=== PATIENT | male | born 1975 | race African-American/Black ===

== ENCOUNTER 2022-12-01 07:45 | Emergency (ER) | payer OTHER, SELFPAY ==
[2022-12-01] MEDS ORDERED: Mag-Al Plus 1200 MG/1200 MG/120 MG/30 ML UDCUP ONE (08:19)
[2022-12-01 08:33] LABS: #Eosinphils 0.1 10x3/uL (0.0-0.5); #Monocytes 0.4 10x3/uL (0.0-1.1); #Neutrophils 4.1 10x3/uL (1.5-8.4); %Basophils 0.4 % (0.0-2.0); %Eosinophils 1.1 % (0.0-6.0); %Monocytes 7.1 % (0.0-10.0); %Neutrophils 72.2 % (40.0-75.0); Hematocrit 40.4 % (38.8-50.0); Hemoglobin 13.7 g/dL (13.5-17.5); Mean Corpuscular HGB CONC 33.9 g/dL (32.0-36.0); Mean Corpuscular Hemoglobin 28.4 pg (27.0-33.0); Mean Corpuscular Volume 83.8 fl (81.2-95.1); Mean Platelet Volume 11.2 fl (7.4-10.4); Platelet Count 225 10x3/uL (150-450); RBC Distribution Width 13.6 % (11.5-14.5); Red Blood Cell (RBC) Count 4.82 10x6/uL (4.32-5.72); White Blood Cell (WBC) Count 5.7 10x3/uL (3.5-10.5)
[2022-12-01 08:39] LABS: ALT (SGPT) 66 U/L (8-55); AST (SGOT) 40 U/L (5-34); Albumin 4.3 g/dL (3.5-5.0); Alkaline Phosphatase 123 U/L (40-110); Anion Gap 17 mmol/L (10-20); BUN (Urea Nitrogen) 9 mg/dL (8.9-20.6); Bilirubin, Total 1.5 mg/dL (0.2-1.2); Calc. Creatinine Clearance 0 mL/min (70-130); Carbon Dioxide 23 mmol/L (22-29); Chloride 102 mmol/L (98-107); Estimated GFR 105; Globulin 3.3 g/dL (2.4-3.5); Glucose 112 mg/dL (70-105); Lipase 709 U/L (8-78); Potassium 3.7 mmol/L (3.5-5.1); Protein, Total 7.6 g/dL (6.0-8.3); Sodium 138 mmol/L (136-145)
[2022-12-01] MEDS ORDERED: Ketorolac Tromethamine 30 MG/ML VIAL ONE (09:08)
[2022-12-01 09:44] LABS: Bilirubin Neg (Negative); Blood, Urine Negative (Negative); Clarity Clear (Clear); Glucose, Urine (Dipstick) Normal (Negative); Ketone, Urine 5 mg/dL (Negative); Leukocyte Negative (Negative); Nitrite Negative (Negative); Protein, Urine (Dipstick) 15 mg/dl (Neg-Trace); Specific Gravity, Urine 1.025 (1.005-1.030)
[2022-12-01 09:51] LABS: Bacteria/HPF Rare-Few HPF (None Seen); CAUTI Indications for Culture Pelvic or flank pain; RBC/HPF 0-3 HPF (0-3); WBC/HPF 0-3 HPF (0-3)
[2022-12-01 09:52] LABS: Urine Culture Reflex No No
[2022-12-01] MEDS ORDERED: Iopamidol 300 61% 100 ML VIAL FS ONE (10:00)
== END 2022-12-01 11:20 | disposition home or self-care (01) ==
LOC: CSHERS 07:45
DX: K85.90 Acute pancreatitis without necrosis or infection, unspecified (principal); I10 Essential (primary) hypertension
CPT/HCPCS: 36415; 74177; 80053; 81001; 83690; 85025; 96374; J1885; Q9967

== ENCOUNTER 2024-01-08 23:04 | Emergency (ER) | payer BC, OTHER ==
[~2024-01-08 23:04] MED LIST: Iopamidol 370 76% 100 ML VIAL ONE
[2024-01-08] MEDS ORDERED: Morphine 10 MG/ML VIAL ONE (23:38)
[2024-01-08] MEDS ORDERED: Ondansetron PF 4 MG/2 ML Vial ONE (23:39)
[2024-01-08 23:54] LABS: #Basophils 0.03 10x3/uL (0.0-0.2); #Eosinphils 0.06 10x3/uL (0.0-0.5); #Monocytes 0.36 10x3/uL (0.0-1.1); #Neutrophils 2.68 10x3/uL (1.5-8.4); %Basophils 0.6 % (0.0-2.0); %Eosinophils 1.3 % (0.0-6.0); %Lymphocytes 32.3 % (18.0-47.0); %Monocytes 7.8 % (0.0-10.0); %Neutrophils 57.8 % (40.0-75.0); Hematocrit 39.1 % (38.8-50.0); Hemoglobin 13.2 g/dL (13.5-17.5); Mean Corpuscular HGB CONC 33.8 g/dL (32.0-36.0); Mean Corpuscular Hemoglobin 28.6 pg (27.0-33.0); Mean Corpuscular Volume 84.6 fL (81.2-95.1); Mean Platelet Volume 11.4 fL (7.4-10.4); Platelet Count 220 10x3/uL (150-450); RBC Distribution Width 14.2 % (11.5-14.5); Red Blood Cell (RBC) Count 4.62 10x6/uL (4.32-5.72); White Blood Cell (WBC) Count 4.6 10x3/uL (3.5-10.5)
[2024-01-08 23:58] LABS: Acetaminophen Less than 10 mcg/mL (Less than 10); Alcohol Less than 10.0 mg/dL (Less than 10); Lipase 173 U/L (8-78); Salicylate Less than 8.0 mg/dL (Less than 8.0)
[2024-01-08 23:59] LABS: ALT (SGPT) 68 U/L (8-55); AST (SGOT) 34 U/L (5-34); Albumin 4.1 g/dL (3.5-5.0); Alkaline Phosphatase 71 U/L (40-110); Anion Gap 14 mmol/L (10-20); BUN (Urea Nitrogen) 11 mg/dL (8.9-20.6); Bilirubin, Total 0.6 mg/dL (0.2-1.2); Calc. Creatinine Clearance 0 mL/min (70-130); Calcium 9.2 mg/dL (7.8-10.44); Carbon Dioxide 23 mmol/L (22-29); Chloride 105 mmol/L (98-107); Estimated GFR 93; Globulin 3.1 g/dL (2.4-3.5); Glucose 117 mg/dL (70-105); Protein, Total 7.2 g/dL (6.0-8.3); Sodium 138 mmol/L (136-145)
[2024-01-09] MEDS ORDERED: Morphine 4 MG/ML VIAL ONE (01:46)
== END 2024-01-09 02:58 | disposition short-term general hospital (02) ==
LOC: CSHERS 23:04
DX: K85.90 Acute pancreatitis without necrosis or infection, unspecified (principal); I10 Essential (primary) hypertension
CPT/HCPCS: 36415; 71045; 74177; 80053; 80307; 83690; 84484; 85025; 93005; 96374; 96375; 96376; J2270; J2272; J2405

== ENCOUNTER 2024-01-22 10:53 | Emergency (ER) | payer OTHER ==
[2024-01-22] MEDS ORDERED: Ketorolac Tromethamine 30 MG (1 mL) VIAL ONE (11:43)
[2024-01-22 11:47] LABS: ALT (SGPT) 55 U/L (8-55); AST (SGOT) 32 U/L (5-34); Albumin 4.2 g/dL (3.5-5.0); Alkaline Phosphatase 73 U/L (40-110); Anion Gap 15 mmol/L (10-20); BUN (Urea Nitrogen) 14 mg/dL (8.4-25.7); Bilirubin, Total 0.6 mg/dL (0.2-1.2); Calc. Creatinine Clearance 0 mL/min (70-130); Calcium 9.2 mg/dL (7.8-10.44); Carbon Dioxide 23 mmol/L (22-29); Chloride 105 mmol/L (98-107); Estimated GFR 88; Globulin 3.5 g/dL (2.4-3.5); Glucose 100 mg/dL (70-105); Lipase 40 U/L (8-78); Potassium 4.1 mmol/L (3.5-5.1); Protein, Total 7.7 g/dL (6.0-8.3); Sodium 139 mmol/L (136-145)
[2024-01-22] MEDS ORDERED: Morphine 4 MG/ML VIAL ONE (11:48)
[2024-01-22 12:03] LABS: #Basophils 0.03 10x3/uL (0.0-0.2); #Eosinophils 0.09 10x3/uL (0.0-0.5); #Monocytes 0.42 10x3/uL (0.0-1.1); %Basophils 0.4 % (0.0-2.0); %Eosinophils 1.2 % (0.0-6.0); %Lymphocytes 18.8 % (18.0-47.0); %Monocytes 5.4 % (0.0-10.0); %Neutrophils 73.9 % (40.0-75.0); Hematocrit 42.9 % (38.8-50.0); Mean Corpuscular HGB CONC 32.6 g/dL (32.0-36.0); Mean Corpuscular Hemoglobin 27.7 pg (27.0-33.0); Mean Platelet Volume 11.2 fL (7.4-10.4); Platelet Count 286 10x3/uL (150-450); RBC Distribution Width 13.9 % (11.5-14.5); Red Blood Cell (RBC) Count 5.05 10x6/uL (4.32-5.72); White Blood Cell (WBC) Count 7.7 10x3/uL (3.5-10.5)
[2024-01-23] MEDS ORDERED: Morphine 4 MG/ML VIAL ONE (06:07)
[2024-01-23] MEDS ORDERED: Ondansetron PF 4 MG/2 ML Vial ONE (06:07)
== END 2024-01-22 14:02 | disposition home or self-care (01) ==
LOC: CSHERS 10:53
DX: K85.90 Acute pancreatitis without necrosis or infection, unspecified (principal); K86.1 Other chronic pancreatitis; I10 Essential (primary) hypertension
CPT/HCPCS: 80053; 83690; 85025; 96374; 96375; J1885; J2272

== ENCOUNTER 2024-02-17 19:10 | Emergency (ER) | payer OTHER ==
[2024-02-17] MEDS ORDERED: Ondansetron PF 4 MG/2 ML Vial ONE (19:33)
[2024-02-17 20:28] LABS: #Basophils 0.02 10x3/uL (0.0-0.2); #Eosinophils 0.06 10x3/uL (0.0-0.5); #Monocytes 0.42 10x3/uL (0.0-1.1); #Neutrophils 3.05 10x3/uL (1.5-8.4); %Basophils 0.4 % (0.0-2.0); %Eosinophils 1.1 % (0.0-6.0); %Lymphocytes 34.6 % (18.0-47.0); %Monocytes 7.7 % (0.0-10.0); ALT (SGPT) 52 U/L (8-55); AST (SGOT) 25 U/L (5-34); Albumin 3.9 g/dL (3.5-5.0); Alcohol Less than 10.0 mg/dL (Less than 10); Alkaline Phosphatase 64 U/L (40-110); Anion Gap 15 mmol/L (10-20); BUN (Urea Nitrogen) 15 mg/dL (8.4-25.7); Bilirubin, Total 1.1 mg/dL (0.2-1.2); Calc. Creatinine Clearance 0 mL/min (70-130); Calcium 9.1 mg/dL (7.8-10.44); Carbon Dioxide 19 mmol/L (22-29); Chloride 108 mmol/L (98-107); Estimated GFR 80; Globulin 3.2 g/dL (2.4-3.5); Glucose 99 mg/dL (70-105); Hematocrit 38.8 % (38.8-50.0); Hemoglobin 12.5 g/dL (13.5-17.5); Lipase 58 U/L (8-78); Magnesium 1.9 mg/dL (1.6-2.6); Mean Corpuscular HGB CONC 32.2 g/dL (32.0-36.0); Mean Corpuscular Hemoglobin 27.2 pg (27.0-33.0); Mean Corpuscular Volume 84.5 fL (81.2-95.1); Mean Platelet Volume 11.4 fL (7.4-10.4); Platelet Count 242 10x3/uL (150-450); Potassium 3.8 mmol/L (3.5-5.1); Protein, Total 7.1 g/dL (6.0-8.3); RBC Distribution Width 13.9 % (11.5-14.5); Red Blood Cell (RBC) Count 4.59 10x6/uL (4.32-5.72); Sodium 138 mmol/L (136-145); White Blood Cell (WBC) Count 5.4 10x3/uL (3.5-10.5)
[2024-02-17] MEDS ORDERED: Morphine 4 MG/ML VIAL ONE (21:20)
== END 2024-02-17 21:38 | disposition home or self-care (01) ==
LOC: CSHERS 19:10
DX: K29.00 Acute gastritis without bleeding (principal); K86.1 Other chronic pancreatitis; I10 Essential (primary) hypertension; Z79.51 Long term (current) use of inhaled steroids; Z79.899 Other long term (current) drug therapy
CPT/HCPCS: 80053; 80307; 83690; 83735; 85025; 96374; 96375; J2272; J2405

== ENCOUNTER 2024-02-18 07:30 | Emergency (ER) | payer OTHER ==
[2024-02-18] MEDS ORDERED: Morphine 4 MG/ML VIAL ONE (07:50)
[2024-02-18] MEDS ORDERED: Ondansetron PF 4 MG/2 ML Vial ONE (07:50)
[2024-02-18] MEDS ORDERED: Famotidine/PF 20 mg/2ml Vial ONE (07:51)
[2024-02-18 08:54] LABS: #Basophils 0.03 10x3/uL (0.0-0.2); #Eosinophils 0.06 10x3/uL (0.0-0.5); #Monocytes 0.35 10x3/uL (0.0-1.1); %Basophils 0.8 % (0.0-2.0); %Eosinophils 1.7 % (0.0-6.0); %Lymphocytes 29.4 % (18.0-47.0); %Monocytes 9.7 % (0.0-10.0); %Neutrophils 58.1 % (40.0-75.0); Hematocrit 36.7 % (38.8-50.0); Hemoglobin 12.1 g/dL (13.5-17.5); Mean Corpuscular Hemoglobin 27.9 pg (27.0-33.0); Mean Corpuscular Volume 84.8 fL (81.2-95.1); Mean Platelet Volume 10.8 fL (7.4-10.4); Platelet Count 203 10x3/uL (150-450); RBC Distribution Width 13.5 % (11.5-14.5); Red Blood Cell (RBC) Count 4.33 10x6/uL (4.32-5.72); White Blood Cell (WBC) Count 3.6 10x3/uL (3.5-10.5)
[2024-02-18 09:10] LABS: ALT (SGPT) 53 U/L (8-55); AST (SGOT) 28 U/L (5-34); Albumin 3.6 g/dL (3.5-5.0); Alkaline Phosphatase 61 U/L (40-110); Anion Gap 14 mmol/L (10-20); BUN (Urea Nitrogen) 10 mg/dL (8.4-25.7); Bilirubin, Total 0.7 mg/dL (0.2-1.2); Calc. Creatinine Clearance 0 mL/min (70-130); Calcium 8.6 mg/dL (7.8-10.44); Carbon Dioxide 20 mmol/L (22-29); Chloride 103 mmol/L (98-107); Estimated GFR 104; Globulin 3.1 g/dL (2.4-3.5); Glucose 112 mg/dL (70-105); Lipase 49 U/L (8-78); Potassium 3.8 mmol/L (3.5-5.1); Protein, Total 6.7 g/dL (6.0-8.3); Sodium 133 mmol/L (136-145)
[2024-02-18] MEDS ORDERED: Iopamidol 300 61% 100 ML VIAL FS ONE (12:10)
== END 2024-02-18 09:22 | disposition home or self-care (01) ==
LOC: CSHERS 07:30
DX: R10.9 Unspecified abdominal pain (principal); G89.29 Other chronic pain; I10 Essential (primary) hypertension
CPT/HCPCS: 36415; 74177; 80053; 83690; 85025; 96374; 96375; J2272; J2405; J3490; Q9967

== ENCOUNTER 2024-03-07 09:34 | Emergency (ER) | payer OTHER ==
[2024-03-07] MEDS ORDERED: Morphine 4 MG/ML VIAL ONE (10:09)
[2024-03-07] MEDS ORDERED: Ondansetron PF 4 MG/2 ML Vial ONE (10:09)
[2024-03-07 10:11] LABS: #Basophils 0.02 10x3/uL (0.0-0.2); #Eosinophils 0.06 10x3/uL (0.0-0.5); %Basophils 0.5 % (0.0-2.0); %Eosinophils 1.5 % (0.0-6.0); %Lymphocytes 36.5 % (18.0-47.0); %Monocytes 7.4 % (0.0-10.0); %Neutrophils 53.9 % (40.0-75.0); Hematocrit 39.4 % (38.8-50.0); Hemoglobin 13.1 g/dL (13.5-17.5); Mean Corpuscular HGB CONC 33.2 g/dL (32.0-36.0); Mean Corpuscular Volume 84.2 fL (81.2-95.1); Mean Platelet Volume 10.7 fL (7.4-10.4); Platelet Count 228 10x3/uL (150-450); RBC Distribution Width 13.9 % (11.5-14.5); Red Blood Cell (RBC) Count 4.68 10x6/uL (4.32-5.72); White Blood Cell (WBC) Count 4.1 10x3/uL (3.5-10.5)
[2024-03-07 10:36] LABS: ALT (SGPT) 45 U/L (8-55); AST (SGOT) 28 U/L (5-34); Albumin 3.9 g/dL (3.5-5.0); Alkaline Phosphatase 71 U/L (40-110); Anion Gap 14 mmol/L (10-20); BUN (Urea Nitrogen) 11 mg/dL (8.4-25.7); Bilirubin, Total 0.6 mg/dL (0.2-1.2); Calc. Creatinine Clearance 0 mL/min (70-130); Calcium 9.3 mg/dL (7.8-10.44); Carbon Dioxide 23 mmol/L (22-29); Chloride 103 mmol/L (98-107); Estimated GFR 99; Globulin 3.4 g/dL (2.4-3.5); Glucose 121 mg/dL (70-105); Lipase 81 U/L (8-78); Potassium 3.5 mmol/L (3.5-5.1); Protein, Total 7.3 g/dL (6.0-8.3); Sodium 136 mmol/L (136-145)
[2024-03-07 10:54] LABS: Bilirubin Neg (Negative); Blood, Urine Negative (Negative); Clarity Clear (Clear); Glucose, Urine (Dipstick) Normal (Negative); Ketone, Urine Negative (Negative); Leukocyte Negative (Negative); Nitrite Negative (Negative); Protein, Urine (Dipstick) 15 mg/dl (Neg-Trace)
[2024-03-07 11:04] LABS: Bacteria/HPF None Seen HPF (None Seen); CAUTI Indications for Culture Pelvic or flank pain; RBC/HPF 0-3 HPF (0-3); Squamous Epithelial 0-3 HPF (0-3); WBC/HPF None Seen HPF (0-3)
[2024-03-07 11:06] LABS: Urine Culture Reflex No No
[2024-03-07] MEDS ORDERED: Iopamidol 300 61% 100 ML VIAL FS ONE (13:21)
== END 2024-03-07 11:43 | disposition home or self-care (01) ==
LOC: CSHERS 09:34
DX: K86.1 Other chronic pancreatitis (principal); I10 Essential (primary) hypertension
CPT/HCPCS: 36415; 74177; 80053; 81001; 83690; 85025; J2272; J2405; Q9967

== ENCOUNTER 2024-03-09 05:57 | Inpatient (IN) | payer OTHER ==
[2024-03-09] MEDS ORDERED: Morphine 4 MG/ML VIAL ONE (06:09)
[2024-03-09] MEDS ORDERED: Ondansetron PF 4 MG/2 ML Vial ONE (06:10)
[2024-03-09] MEDS ORDERED: Famotidine/PF 20 mg/2ml Vial ONE (06:26)
[2024-03-09 06:52] LABS: ALT (SGPT) 42 U/L (8-55); BUN (Urea Nitrogen) 12 mg/dL (8.4-25.7); Calc. Creatinine Clearance 0 mL/min (70-130); Potassium 3.7 mmol/L (3.5-5.1)
[2024-03-09 07:01] LABS: #Basophils 0.03 10x3/uL (0.0-0.2); #Eosinophils 0.06 10x3/uL (0.0-0.5); #Monocytes 0.39 10x3/uL (0.0-1.1); #Neutrophils 2.78 10x3/uL (1.5-8.4); %Basophils 0.6 % (0.0-2.0); %Eosinophils 1.2 % (0.0-6.0); %Lymphocytes 32.5 % (18.0-47.0); %Monocytes 8.1 % (0.0-10.0); %Neutrophils 57.6 % (40.0-75.0); Hematocrit 38.1 % (38.8-50.0); Hemoglobin 13.1 g/dL (13.5-17.5); Mean Corpuscular HGB CONC 34.4 g/dL (32.0-36.0); Mean Corpuscular Hemoglobin 28.5 pg (27.0-33.0); Mean Corpuscular Volume 82.8 fL (81.2-95.1); Mean Platelet Volume 11.4 fL (7.4-10.4); Platelet Count 241 10x3/uL (150-450); RBC Distribution Width 14.1 % (11.5-14.5); White Blood Cell (WBC) Count 4.8 10x3/uL (3.5-10.5)
[2024-03-09 07:49] LABS: AST (SGOT) 28 U/L (5-34); Albumin 3.7 g/dL (3.5-5.0); Alkaline Phosphatase 67 U/L (40-110); Anion Gap 16 mmol/L (10-20); Bilirubin, Total 0.7 mg/dL (0.2-1.2); Calcium 8.8 mg/dL (7.8-10.44); Carbon Dioxide 19 mmol/L (22-29); Chloride 106 mmol/L (98-107); Estimated GFR 104; Globulin 2.9 g/dL (2.4-3.5); Glucose 122 mg/dL (70-105); Lipase 498 U/L (8-78); Protein, Total 6.6 g/dL (6.0-8.3); Sodium 137 mmol/L (136-145)
[2024-03-09] MEDS ORDERED: fentaNYL 50 mcg/mL 1 mL Vial ONE (08:16)
[2024-03-09 08:46] LABS: Troponin I Less than 0.010 ng/mL (< 0.028)
[2024-03-09] MEDS ORDERED: Ondansetron PF 4 MG/2 ML Vial IVP PRN (09:27)
[2024-03-09] MEDS ORDERED: Promethazine HCl 25 MG/ML VIAL IM PRN ×2 (09:27)
[2024-03-09] MEDS ORDERED: Acetaminophen 325 MG TAB PO PRN (09:27)
[2024-03-09] MEDS ORDERED: Ketorolac Tromethamine 30 MG (1 mL) VIAL ONE (10:03)
[2024-03-09 11:12] VITALS: BMI 32.1
[2024-03-09] MEDS: Morphine 4 MG/ML VIAL SLOW IVP PRN (12:15)
[2024-03-09] MEDS: Sodium Chloride 0.9% 1,000 ML IV SCH (12:20)
[2024-03-09] MEDS: Ketorolac Tromethamine 30 MG (1 mL) VIAL IVP SCH (13:14)
[2024-03-09] MEDS: Famotidine/PF 20 mg/2ml Vial SLOW IVP SCH (20:02)
[2024-03-10] MEDS: Enoxaparin 40 MG (0.4 mL) SYRINGE SC SCH (08:41)
[2024-03-10] MEDS ORDERED: cloNIDine 0.2 MG TAB PO PRN (08:58)
[2024-03-10] MEDS ORDERED: Lidocaine 4% Patch TD PRN (08:58)
[2024-03-10] MEDS ORDERED: oxyCODONE 5 MG TAB PO PRN (09:00)
[2024-03-10] MEDS ORDERED: Fluticasone Propionate Nasal Spray 16 gm Bottle NASAL PRN (09:13)
[2024-03-10] MEDS: Baclofen 10 MG TAB PO SCH (10:05)
[2024-03-10] MEDS: Pantoprazole DR 40 MG TAB PO SCH (10:05)
[2024-03-10] MEDS: Amlodipine 10 MG TAB PO SCH (10:05)
[2024-03-10] MEDS: Acetaminophen 500 MG TAB PO SCH (10:05)
[2024-03-10] MEDS: hydrALAZINE 25 MG TAB PO SCH (10:05)
[2024-03-10] MEDS ORDERED: LIPASE PO SCH (12:00)
[2024-03-10] MEDS ORDERED: AMYLASE PO SCH (12:00)
[2024-03-10] MEDS ORDERED: [UNRECOGNIZED DRUG - OTHER] PO SCH (12:00)
[2024-03-10] MEDS ORDERED: PROTEASE PO SCH (12:00)
[2024-03-10 12:53] VITALS: BP 128/82; TEMP 98.5
[2024-03-10] MEDS: Pancrelipase DR 12,000 1 CAP PO SCH (12:54)
[2024-03-10] MEDS ORDERED: Pregabalin 50 MG CAP PO SCH (21:00)
== END 2024-03-10 13:52 | disposition home or self-care (01) | DRG 440 ==
LOC: CSHERS 05:57 → CSHTELE 10:45 → OBSVTOIN 03-10 09:39
PROVIDERS: ADMIT Hospitalist; ATTEND Hospitalist
DX: K85.90 Acute pancreatitis without necrosis or infection, unspecified (principal); I10 Essential (primary) hypertension; K86.1 Other chronic pancreatitis; G47.33 Obstructive sleep apnea (adult) (pediatric); F43.10 Post-traumatic stress disorder, unspecified; Z85.46 Personal history of malignant neoplasm of prostate; Z79.02 Long term (current) use of antithrombotics/antiplatelets; Z79.51 Long term (current) use of inhaled steroids; Z79.899 Other long term (current) drug therapy
CPT/HCPCS: 36415; 74177; 80053; 81001; 83690; 84484; 85025; 86140; 93005; 96372; 96374; 96375; 96376; G0378; J1650; J1885; J2272; J2405; J3010; J3490; J7030; Q9967

== ENCOUNTER 2024-03-13 01:58 | Emergency (ER) | payer OTHER ==
[2024-03-13] MEDS ORDERED: HYDROmorphone 0.5 MG/0.5 ML SYRINGE ONE (03:23)
[2024-03-13] MEDS ORDERED: Promethazine HCl 25 MG/ML VIAL IM SCH (21:00)
[2024-03-14 02:58] LABS: #Basophils 0.02 10x3/uL (0.0-0.2); #Eosinophils 0.07 10x3/uL (0.0-0.5); #Monocytes 0.42 10x3/uL (0.0-1.1); #Neutrophils 2.77 10x3/uL (1.5-8.4); %Basophils 0.4 % (0.0-2.0); %Eosinophils 1.4 % (0.0-6.0); %Lymphocytes 36.4 % (18.0-47.0); %Monocytes 8.1 % (0.0-10.0); %Neutrophils 53.5 % (40.0-75.0); Hematocrit 35.5 % (38.8-50.0); Hemoglobin 12.3 g/dL (13.5-17.5); Mean Corpuscular HGB CONC 34.6 g/dL (32.0-36.0); Mean Corpuscular Hemoglobin 29.1 pg (27.0-33.0); Mean Corpuscular Volume 83.9 fL (81.2-95.1); Mean Platelet Volume 11.2 fL (7.4-10.4); Platelet Count 234 10x3/uL (150-450); RBC Distribution Width 14.3 % (11.5-14.5); Red Blood Cell (RBC) Count 4.23 10x6/uL (4.32-5.72); White Blood Cell (WBC) Count 5.2 10x3/uL (3.5-10.5)
[2024-03-14 02:59] LABS: ALT (SGPT) 57 U/L (8-55); AST (SGOT) 41 U/L (5-34); Albumin 3.8 g/dL (3.5-5.0); Alkaline Phosphatase 60 U/L (40-110); Anion Gap 15 mmol/L (10-20); BUN (Urea Nitrogen) 17 mg/dL (8.4-25.7); Bilirubin, Total 0.6 mg/dL (0.2-1.2); Calc. Creatinine Clearance 0 mL/min (70-130); Calcium 9.3 mg/dL (7.8-10.44); Carbon Dioxide 24 mmol/L (22-29); Chloride 103 mmol/L (98-107); Estimated GFR 78; Globulin 3.1 g/dL (2.4-3.5); Glucose 117 mg/dL (70-105); Lipase 33 U/L (8-78); Potassium 3.5 mmol/L (3.5-5.1); Protein, Total 6.9 g/dL (6.0-8.3); Sodium 138 mmol/L (136-145)
== END 2024-03-13 03:59 | disposition home or self-care (01) ==
LOC: CSHERS 01:58
DX: R10.13 Epigastric pain (principal); I10 Essential (primary) hypertension; Z79.899 Other long term (current) drug therapy
CPT/HCPCS: 80053; 83690; 85025; 96372; 99284; J2550

== ENCOUNTER 2024-03-17 08:56 | Emergency (ER) | payer OTHER ==
[2024-03-17 09:47] LABS: #Basophils 0.02 10x3/uL (0.0-0.2); #Eosinophils 0.08 10x3/uL (0.0-0.5); #Monocytes 0.43 10x3/uL (0.0-1.1); #Neutrophils 2.72 10x3/uL (1.5-8.4); %Basophils 0.4 % (0.0-2.0); %Eosinophils 1.7 % (0.0-6.0); %Lymphocytes 32.2 % (18.0-47.0); %Monocytes 8.9 % (0.0-10.0); %Neutrophils 56.6 % (40.0-75.0); Hematocrit 40.9 % (38.8-50.0); Hemoglobin 13.5 g/dL (13.5-17.5); Mean Corpuscular Volume 84.7 fL (81.2-95.1); Mean Platelet Volume 10.9 fL (7.4-10.4); Platelet Count 245 10x3/uL (150-450); RBC Distribution Width 14.2 % (11.5-14.5); Red Blood Cell (RBC) Count 4.83 10x6/uL (4.32-5.72); White Blood Cell (WBC) Count 4.8 10x3/uL (3.5-10.5)
[2024-03-17 10:03] LABS: Anion Gap 13 mmol/L (10-20); BUN (Urea Nitrogen) 12 mg/dL (8.4-25.7); Calc. Creatinine Clearance 0 mL/min (70-130); Calcium 9.6 mg/dL (7.8-10.44); Carbon Dioxide 26 mmol/L (22-29); Chloride 103 mmol/L (98-107); Estimated GFR 84; Glucose 101 mg/dL (70-105); Potassium 4.2 mmol/L (3.5-5.1); Sodium 138 mmol/L (136-145)
[2024-03-17 10:18] LABS: Bilirubin Neg (Negative); Blood, Urine Negative (Negative); Clarity Clear (Clear); Glucose, Urine (Dipstick) Normal (Negative); Ketone, Urine Negative (Negative); Leukocyte Negative (Negative); Nitrite Negative (Negative); Protein, Urine (Dipstick) Negative (Neg-Trace); Specific Gravity, Urine 1.015 (1.005-1.030); Urobilinogen Normal mg/dL (Less than 2)
[2024-03-17 10:27] LABS: Bacteria/HPF None Seen HPF (None Seen); CAUTI Indications for Culture Pelvic or flank pain; RBC/HPF None Seen HPF (0-3); Squamous Epithelial 0-3 HPF (0-3); WBC/HPF None Seen HPF (0-3)
[2024-03-17 10:28] LABS: Urine Culture Reflex No No
[2024-03-17] MEDS ORDERED: Morphine 4 MG/ML VIAL ONE (12:33)
[2024-03-17 13:04] LABS: ALT (SGPT) 62 U/L (8-55); AST (SGOT) 34 U/L (5-34); Albumin 4.1 g/dL (3.5-5.0); Alkaline Phosphatase 72 U/L (40-110); Anion Gap 13 mmol/L (10-20); BUN (Urea Nitrogen) 10 mg/dL (8.4-25.7); Bilirubin, Total 0.8 mg/dL (0.2-1.2); Calc. Creatinine Clearance 0 mL/min (70-130); Calcium 9.7 mg/dL (7.8-10.44); Carbon Dioxide 26 mmol/L (22-29); Chloride 102 mmol/L (98-107); Estimated GFR 89; Globulin 3.4 g/dL (2.4-3.5); Glucose 103 mg/dL (70-105); Potassium 3.8 mmol/L (3.5-5.1); Protein, Total 7.5 g/dL (6.0-8.3); Sodium 137 mmol/L (136-145)
[2024-03-17] MEDS ORDERED: Ketorolac Tromethamine 30 MG (1 mL) VIAL ONE (15:25)
== END 2024-03-17 16:52 | disposition home or self-care (01) ==
LOC: CSHERS 08:56
DX: R10.31 Right lower quadrant pain (principal); R10.13 Epigastric pain; I10 Essential (primary) hypertension
CPT/HCPCS: 36415; 76705; 80048; 81001; 83690; 85025; 96374; 96375; J1885; J2272

== ENCOUNTER 2024-04-10 23:22 | Emergency (ER) | payer OTHER ==
[2024-04-11] MEDS ORDERED: Morphine 4 MG/ML VIAL ONE ×2 (00:07→01:49)
[2024-04-11] MEDS ORDERED: Ondansetron PF 4 MG/2 ML Vial ONE (00:07)
[2024-04-11] MEDS ORDERED: Ketorolac Tromethamine 30 MG (1 mL) VIAL ONE (00:08)
[2024-04-11 00:33] LABS: #Basophils 0.02 10x3/uL (0.0-0.2); #Eosinophils 0.07 10x3/uL (0.0-0.5); #Monocytes 0.37 10x3/uL (0.0-1.1); #Neutrophils 3.16 10x3/uL (1.5-8.4); %Basophils 0.4 % (0.0-2.0); %Eosinophils 1.3 % (0.0-6.0); %Lymphocytes 32.9 % (18.0-47.0); %Monocytes 6.8 % (0.0-10.0); %Neutrophils 58.4 % (40.0-75.0); Hematocrit 38.9 % (38.8-50.0); Hemoglobin 13.3 g/dL (13.5-17.5); Mean Corpuscular HGB CONC 34.2 g/dL (32.0-36.0); Mean Corpuscular Hemoglobin 28.7 pg (27.0-33.0); Mean Platelet Volume 11.3 fL (7.4-10.4); Platelet Count 243 10x3/uL (150-450); RBC Distribution Width 14.6 % (11.5-14.5); Red Blood Cell (RBC) Count 4.63 10x6/uL (4.32-5.72); White Blood Cell (WBC) Count 5.4 10x3/uL (3.5-10.5)
[2024-04-11 00:51] LABS: ALT (SGPT) 70 U/L (8-55); AST (SGOT) 41 U/L (5-34); Alkaline Phosphatase 74 U/L (40-110); Anion Gap 16 mmol/L (10-20); BUN (Urea Nitrogen) 13 mg/dL (8.4-25.7); Bilirubin, Total 0.5 mg/dL (0.2-1.2); Calc. Creatinine Clearance 0 mL/min (70-130); Calcium 9.4 mg/dL (7.8-10.44); Carbon Dioxide 22 mmol/L (22-29); Chloride 106 mmol/L (98-107); Estimated GFR 90; Globulin 2.9 g/dL (2.4-3.5); Glucose 127 mg/dL (70-105); Lipase 195 U/L (8-78); Potassium 3.8 mmol/L (3.5-5.1); Protein, Total 6.9 g/dL (6.0-8.3); Sodium 140 mmol/L (136-145)
[2024-04-11 00:57] LABS: Troponin I Less than 0.010 ng/mL (< 0.028)
== END 2024-04-11 03:47 | disposition home or self-care (01) ==
LOC: CSHERS 23:22
DX: K85.90 Acute pancreatitis without necrosis or infection, unspecified (principal); I10 Essential (primary) hypertension; F17.290 Nicotine dependence, other tobacco product, uncomplicated; Z79.899 Other long term (current) drug therapy
CPT/HCPCS: 80053; 83690; 84484; 85025; 93005; 96361; 96374; 96375; 96376; J1885; J2272; J2405

== ENCOUNTER 2024-04-12 14:18 | Inpatient (IN) | payer BC, OTHER ==
[~2024-04-12 14:18] MED LIST changes: +Iopamidol 300 61% 100 ML VIAL FS ONE; -Iopamidol 370 76% 100 ML VIAL ONE
[2024-04-12 15:26] LABS: #Basophils 0.03 10x3/uL (0.0-0.2); #Eosinophils 0.05 10x3/uL (0.0-0.5); #Monocytes 0.41 10x3/uL (0.0-1.1); #Neutrophils 2.54 10x3/uL (1.5-8.4); %Basophils 0.7 % (0.0-2.0); %Eosinophils 1.2 % (0.0-6.0); %Lymphocytes 29.6 % (18.0-47.0); %Monocytes 9.5 % (0.0-10.0); %Neutrophils 58.5 % (40.0-75.0); Hematocrit 43.2 % (38.8-50.0); Hemoglobin 13.9 g/dL (13.5-17.5); Mean Corpuscular HGB CONC 32.2 g/dL (32.0-36.0); Mean Corpuscular Hemoglobin 27.2 pg (27.0-33.0); Mean Corpuscular Volume 84.5 fL (81.2-95.1); Mean Platelet Volume 11.3 fL (7.4-10.4); Platelet Count 243 10x3/uL (150-450); RBC Distribution Width 13.9 % (11.5-14.5); Red Blood Cell (RBC) Count 5.11 10x6/uL (4.32-5.72); White Blood Cell (WBC) Count 4.3 10x3/uL (3.5-10.5)
[2024-04-12] MEDS ORDERED: Ondansetron PF 4 MG/2 ML Vial ONE (15:30)
[2024-04-12] MEDS ORDERED: Ketorolac Tromethamine 30 MG (1 mL) VIAL ONE (15:30)
[2024-04-12] MEDS ORDERED: Morphine 4 MG/ML VIAL ONE ×2 (15:30→17:35)
[2024-04-12 15:32] LABS: ALT (SGPT) 70 U/L (8-55); AST (SGOT) 37 U/L (5-34); Alkaline Phosphatase 76 U/L (40-110); Anion Gap 14 mmol/L (10-20); BUN (Urea Nitrogen) 10 mg/dL (8.4-25.7); Bilirubin, Total 0.6 mg/dL (0.2-1.2); Calc. Creatinine Clearance 0 mL/min (70-130); Calcium 9.6 mg/dL (7.8-10.44); Carbon Dioxide 26 mmol/L (22-29); Chloride 103 mmol/L (98-107); Estimated GFR 73; Globulin 3.3 g/dL (2.4-3.5); Glucose 100 mg/dL (70-105); Lipase 39 U/L (8-78); Potassium 4.2 mmol/L (3.5-5.1); Protein, Total 7.3 g/dL (6.0-8.3); Sodium 139 mmol/L (136-145)
[2024-04-12 17:46] LABS: Bilirubin Neg (Negative); Blood, Urine Negative (Negative); Clarity Clear (Clear); Glucose, Urine (Dipstick) Normal (Negative); Ketone, Urine Negative (Negative); Leukocyte Negative (Negative); Nitrite Negative (Negative); Protein, Urine (Dipstick) Negative (Neg-Trace); Urobilinogen Normal mg/dL (Less than 2)
[2024-04-12 18:11] LABS: Bacteria/HPF None Seen HPF (None Seen); CAUTI Indications for Culture Pelvic or flank pain; RBC/HPF 0-3 HPF (0-3); Squamous Epithelial None Seen HPF (0-3); WBC/HPF None Seen HPF (0-3)
[2024-04-12 18:12] LABS: Urine Culture Reflex No No
[2024-04-12] MEDS ORDERED: HYDROmorphone 0.5 MG/0.5 ML SYRINGE ONE (18:39)
[2024-04-12] MEDS ORDERED: Ondansetron PF 4 MG/2 ML Vial IVP PRN (19:42)
[2024-04-12] MEDS ORDERED: Acetaminophen 325 MG TAB PO PRN (19:42)
[2024-04-12] MEDS: Sodium Chloride 0.9% 1,000 ML IV SCH (21:17)
[2024-04-12] MEDS: Morphine 4 MG/ML VIAL SLOW IVP PRN (21:22)
[2024-04-12 21:28] VITALS: BMI 31.3
[2024-04-12] MEDS: Pantoprazole 40 MG VIAL IVP SCH (21:30)
[2024-04-12] MEDS: Ketorolac Tromethamine 30 MG (1 mL) VIAL IVP PRN (23:01)
[2024-04-12] MEDS ORDERED: Ventolin HFA Inhaler 60 PUFF INHALER INH PRN (23:25)
[2024-04-12] MEDS ORDERED: cloNIDine 0.1 MG TAB PO PRN (23:33)
[2024-04-12] MEDS ORDERED: Fluticasone Propionate Nasal Spray 16 gm Bottle NASAL PRN (23:36)
[2024-04-13 04:51] LABS: #Basophils 0.02 10x3/uL (0.0-0.2); #Eosinophils 0.07 10x3/uL (0.0-0.5); #Monocytes 0.31 10x3/uL (0.0-1.1); #Neutrophils 2.08 10x3/uL (1.5-8.4); %Basophils 0.5 % (0.0-2.0); %Eosinophils 1.7 % (0.0-6.0); %Lymphocytes 38.2 % (18.0-47.0); %Monocytes 7.7 % (0.0-10.0); %Neutrophils 51.7 % (40.0-75.0); Hematocrit 37.2 % (38.8-50.0); Hemoglobin 12.5 g/dL (13.5-17.5); Mean Corpuscular HGB CONC 33.6 g/dL (32.0-36.0); Mean Corpuscular Hemoglobin 28.4 pg (27.0-33.0); Mean Corpuscular Volume 84.5 fL (81.2-95.1); Mean Platelet Volume 11.6 fL (7.4-10.4); Platelet Count 201 10x3/uL (150-450); RBC Distribution Width 14.2 % (11.5-14.5)
[2024-04-13 05:15] LABS: ALT (SGPT) 58 U/L (8-55); AST (SGOT) 32 U/L (5-34); Albumin 3.5 g/dL (3.5-5.0); Alkaline Phosphatase 63 U/L (40-110); Anion Gap 14 mmol/L (10-20); BUN (Urea Nitrogen) 9 mg/dL (8.4-25.7); Bilirubin, Total 0.8 mg/dL (0.2-1.2); Calc. Creatinine Clearance 121 mL/min (70-130); Calcium 8.8 mg/dL (7.8-10.44); Carbon Dioxide 23 mmol/L (22-29); Chloride 104 mmol/L (98-107); Estimated GFR 99; Globulin 2.9 g/dL (2.4-3.5); Glucose 97 mg/dL (70-105); Lipase 14 U/L (8-78); Potassium 3.8 mmol/L (3.5-5.1); Protein, Total 6.4 g/dL (6.0-8.3); Sodium 137 mmol/L (136-145)
[2024-04-13] MEDS: Baclofen 10 MG TAB PO SCH (09:35)
[2024-04-13] MEDS: Amlodipine 10 MG TAB PO SCH (09:35)
[2024-04-13] MEDS: Multivit, Therapeutic 1 TAB PO SCH (09:35)
[2024-04-13] MEDS: hydrALAZINE 25 MG TAB PO SCH (09:35)
[2024-04-13] MEDS: Pancrelipase DR 12,000 1 CAP PO SCH (09:36)
[2024-04-13] MEDS: Pantoprazole 40 MG VIAL IVP SCH (09:40)
[2024-04-13] MEDS: Enoxaparin 40 MG (0.4 mL) SYRINGE SC SCH (09:45)
[2024-04-13] MEDS: Bisacodyl 5 MG TAB PO PRN (11:49)
[2024-04-13] MEDS: Polyethylene Glycol 3350 17 GM Packet PO PRN (11:52)
[2024-04-13] MEDS: Pregabalin 75 MG CAP PO SCH (21:03)
[2024-04-13] MEDS: Atorvastatin Calcium 20 MG TAB PO SCH (21:04)
[2024-04-14 04:53] LABS: #Basophils 0.02 10x3/uL (0.0-0.2); #Eosinophils 0.07 10x3/uL (0.0-0.5); #Monocytes 0.41 10x3/uL (0.0-1.1); #Neutrophils 1.75 10x3/uL (1.5-8.4); %Basophils 0.5 % (0.0-2.0); %Eosinophils 1.9 % (0.0-6.0); %Lymphocytes 38.9 % (18.0-47.0); %Monocytes 11.1 % (0.0-10.0); %Neutrophils 47.3 % (40.0-75.0); Hematocrit 41.7 % (38.8-50.0); Mean Corpuscular HGB CONC 31.2 g/dL (32.0-36.0); Mean Corpuscular Volume 86.7 fL (81.2-95.1); Mean Platelet Volume 11.6 fL (7.4-10.4); Platelet Count 206 10x3/uL (150-450); RBC Distribution Width 14.3 % (11.5-14.5); Red Blood Cell (RBC) Count 4.81 10x6/uL (4.32-5.72); White Blood Cell (WBC) Count 3.7 10x3/uL (3.5-10.5)
[2024-04-14 05:02] LABS: ALT (SGPT) 66 U/L (8-55); AST (SGOT) 37 U/L (5-34); Albumin 3.5 g/dL (3.5-5.0); Alkaline Phosphatase 71 U/L (40-110); Anion Gap 11 mmol/L (10-20); BUN (Urea Nitrogen) 5 mg/dL (8.4-25.7); Bilirubin, Total 0.5 mg/dL (0.2-1.2); Calc. Creatinine Clearance 111 mL/min (70-130); Calcium 8.6 mg/dL (7.8-10.44); Carbon Dioxide 26 mmol/L (22-29); Chloride 105 mmol/L (98-107); Estimated GFR 90; Glucose 98 mg/dL (70-105); Potassium 4.3 mmol/L (3.5-5.1); Protein, Total 6.5 g/dL (6.0-8.3); Sodium 138 mmol/L (136-145)
[2024-04-14 11:49] VITALS: BP 151/99; TEMP 98.1
[2024-04-14] MEDS: HYDROcodone/Acetaminophen 10/325 mg Tablet PO PRN (12:15)
[2024-04-14 12:57] VITALS: BMI 31.3
== END 2024-04-14 14:50 | disposition home or self-care (01) | DRG 440 ==
LOC: CSHERS 14:18 → CSHTELE 19:42 → OBSVTOIN 04-14 13:14
PROVIDERS: ADMIT Internal Medicine; ATTEND Internal Medicine
DX: K85.90 Acute pancreatitis without necrosis or infection, unspecified (principal); G47.33 Obstructive sleep apnea (adult) (pediatric); I10 Essential (primary) hypertension; C61 Malignant neoplasm of prostate; E78.1 Pure hyperglyceridemia; K86.1 Other chronic pancreatitis; F43.10 Post-traumatic stress disorder, unspecified; Z92.3 Personal history of irradiation; Z87.891 Personal history of nicotine dependence; Z91.014 Allergy to mammalian meats; Z99.89 Dependence on other enabling machines and devices; Z79.899 Other long term (current) drug therapy
CPT/HCPCS: 36415; 74177; 80053; 80061; 81001; 83690; 84484; 85025; 93005; 94760; 96361; 96374; 96375; 96376; J1171; J1650; J1885; J2272; J2405; J2470; J7030

== ENCOUNTER 2024-04-22 23:28 | Emergency (ER) | payer BC, OTHER ==
[2024-04-22] MEDS ORDERED: Ondansetron PF 4 MG/2 ML Vial ONE (23:46)
[2024-04-22] MEDS ORDERED: HYDROmorphone 0.5 MG/0.5 ML SYRINGE ONE (23:46)
[2024-04-23 00:18] LABS: #Basophils 0.03 10x3/uL (0.0-0.2); #Eosinophils 0.14 10x3/uL (0.0-0.5); #Monocytes 0.49 10x3/uL (0.0-1.1); #Neutrophils 4.07 10x3/uL (1.5-8.4); %Basophils 0.5 % (0.0-2.0); %Eosinophils 2.2 % (0.0-6.0); %Lymphocytes 25.9 % (18.0-47.0); %Monocytes 7.7 % (0.0-10.0); %Neutrophils 63.7 % (40.0-75.0); Hematocrit 40.5 % (38.8-50.0); Hemoglobin 13.2 g/dL (13.5-17.5); Mean Corpuscular HGB CONC 32.6 g/dL (32.0-36.0); Mean Corpuscular Hemoglobin 27.7 pg (27.0-33.0); Mean Corpuscular Volume 84.9 fL (81.2-95.1); Mean Platelet Volume 11.6 fL (7.4-10.4); Platelet Count 201 10x3/uL (150-450); RBC Distribution Width 13.9 % (11.5-14.5); Red Blood Cell (RBC) Count 4.77 10x6/uL (4.32-5.72); White Blood Cell (WBC) Count 6.4 10x3/uL (3.5-10.5)
[2024-04-23 00:49] LABS: ALT (SGPT) 55 U/L (8-55); AST (SGOT) 26 U/L (5-34); Albumin 3.9 g/dL (3.5-5.0); Alkaline Phosphatase 72 U/L (40-110); Anion Gap 15 mmol/L (10-20); BUN (Urea Nitrogen) 13 mg/dL (8.4-25.7); Bilirubin, Total 0.5 mg/dL (0.2-1.2); Calc. Creatinine Clearance 0 mL/min (70-130); Carbon Dioxide 23 mmol/L (22-29); Estimated GFR 93; Globulin 2.8 g/dL (2.4-3.5); Glucose 128 mg/dL (70-105); Lipase 626 U/L (8-78); Potassium 3.9 mmol/L (3.5-5.1); Protein, Total 6.7 g/dL (6.0-8.3)
[2024-04-23 00:55] LABS: Chloride 106 mmol/L (98-107); Sodium 139 mmol/L (136-145)
[2024-04-23] MEDS ORDERED: HYDROcodone/Acetaminophen 10/325 mg Tablet ONE (01:29)
[2024-04-23] MEDS ORDERED: HYDROmorphone 0.5 MG/0.5 ML SYRINGE ONE (03:00)
[2024-04-23] MEDS ORDERED: Ondansetron PF 4 MG/2 ML Vial ONE (03:01)
== END 2024-04-23 01:43 | disposition home or self-care (01) ==
LOC: CSHERS 23:28
DX: K85.90 Acute pancreatitis without necrosis or infection, unspecified (principal); F17.290 Nicotine dependence, other tobacco product, uncomplicated; I10 Essential (primary) hypertension
CPT/HCPCS: 80053; 83690; 85025; 96374; 96375; J1171; J2405

== ENCOUNTER 2024-04-23 02:59 | Inpatient (IN) | payer BC, OTHER ==
[2024-04-23] MEDS ORDERED: Ondansetron ODT 4 MG TAB PO PRN (03:43)
[2024-04-23] MEDS ORDERED: Ondansetron PF 4 MG/2 ML Vial IVP PRN (03:43)
[2024-04-23] MEDS ORDERED: Morphine 2 MG/ML VIAL SLOW IVP PRN (03:43)
[2024-04-23] MEDS ORDERED: Bisacodyl 10 MG SUPP PR PRN (03:43)
[2024-04-23] MEDS ORDERED: hydrALAZINE 20 MG/ML VIAL SLOW IVP PRN (03:48)
[2024-04-23 04:16] VITALS: BMI 31.1
[2024-04-23] MEDS: Lactated Ringer's 1,000 ML IV SCH (04:18)
[2024-04-23] MEDS: Potassium Chloride 20 MEQ in Lactated Ringer's 1,000 ML IV SCH ×2 (04:19→04:25)
[2024-04-23] MEDS: Morphine 4 MG/ML VIAL SLOW IVP PRN (04:24)
[2024-04-23 06:19] LABS: #Eosinophils 0.06 10x3/uL (0.0-0.5); #Monocytes 0.43 10x3/uL (0.0-1.1); #Neutrophils 5.64 10x3/uL (1.5-8.4); %Basophils 0.3 % (0.0-2.0); %Eosinophils 0.8 % (0.0-6.0); %Lymphocytes 12.6 % (18.0-47.0); %Monocytes 6.1 % (0.0-10.0); %Neutrophils 79.9 % (40.0-75.0); Hemoglobin 12.6 g/dL (13.5-17.5); Mean Corpuscular HGB CONC 33.2 g/dL (32.0-36.0); Mean Corpuscular Hemoglobin 28.1 pg (27.0-33.0); Mean Corpuscular Volume 84.6 fL (81.2-95.1); Mean Platelet Volume 11.5 fL (7.4-10.4); Platelet Count 185 10x3/uL (150-450); Red Blood Cell (RBC) Count 4.49 10x6/uL (4.32-5.72); White Blood Cell (WBC) Count 7.1 10x3/uL (3.5-10.5)
[2024-04-23 06:38] LABS: Anion Gap 14 mmol/L (10-20); BUN (Urea Nitrogen) 11 mg/dL (8.4-25.7); Calc. Creatinine Clearance 125 mL/min (70-130); Carbon Dioxide 25 mmol/L (22-29); Cardiac Risk 3.3 (Less than 4.5); Chloride 104 mmol/L (98-107); Cholesterol 165 mg/dl (< 200 Desired); Estimated GFR 104; Glucose 115 mg/dL (70-105); HDL Cholesterol 50 mg/dL (>60 Neg Risk); LDL Cholesterol, Calculated 89 mg/dL; Lipase 276 U/L (8-78); Potassium 3.9 mmol/L (3.5-5.1); Sodium 139 mmol/L (136-145); Triglycerides 130 mg/dL (Less than 150)
[2024-04-23] MEDS: FLU (Fluarix Triv) TS24-25(6MOS UP)/PF 45 MCG/0.5 ML Syringe IM ONE (06:38)
[2024-04-23 06:42] LABS: #Basophils 0.02 10x3/uL (0.0-0.2)
[2024-04-23] MEDS: Enoxaparin 40 MG (0.4 mL) SYRINGE SC SCH (08:33)
[2024-04-23] MEDS ORDERED: Lidocaine 4% Patch TD PRN (13:48)
[2024-04-23] MEDS ORDERED: Albuterol 2.5 MG (3 mL) NEB NEB PRN (14:16)
[2024-04-23] MEDS: HYDROcodone/Acetaminophen 10/325 mg Tablet PO PRN (14:57)
[2024-04-23] MEDS: Pregabalin 75 MG CAP PO SCH (20:55)
[2024-04-23] MEDS: Baclofen 10 MG TAB PO SCH (20:56)
[2024-04-23] MEDS: hydrALAZINE 25 MG TAB PO SCH (20:57)
[2024-04-24 05:18] LABS: Anion Gap 13 mmol/L (10-20); BUN (Urea Nitrogen) 6 mg/dL (8.4-25.7); Calc. Creatinine Clearance 120 mL/min (70-130); Calcium 9.1 mg/dL (7.8-10.44); Carbon Dioxide 27 mmol/L (22-29); Chloride 101 mmol/L (98-107); Estimated GFR 99; Glucose 103 mg/dL (70-105); Lipase 50 U/L (8-78); Potassium 3.9 mmol/L (3.5-5.1); Sodium 137 mmol/L (136-145)
[2024-04-25] MEDS ORDERED: cloNIDine 0.1 MG TAB PO PRN (07:40)
[2024-04-25] MEDS ORDERED: LIPASE PO SCH (09:00)
[2024-04-25] MEDS ORDERED: [UNRECOGNIZED DRUG - OTHER] PO SCH (09:00)
[2024-04-25] MEDS ORDERED: PROTEASE PO SCH (09:00)
[2024-04-25] MEDS ORDERED: AMYLASE PO SCH (09:00)
[2024-04-25] MEDS: Morphine 2 MG/ML VIAL SLOW IVP PRN (09:19)
[2024-04-25] MEDS: Amlodipine 10 MG TAB PO SCH (09:19)
[2024-04-25] MEDS: Potassium Chloride 20 MEQ, Admixture Fee 1 EACH in Lactated Ringer's 1,000 ML IV SCH (09:22)
[2024-04-25] MEDS: Pancrelipase DR 12,000 1 CAP PO SCH (11:53)
[2024-04-25 12:06] VITALS: BP 151/101; TEMP 97.9
[2024-04-25] MEDS: Ketorolac Tromethamine 30 MG (1 mL) VIAL IVP PRN (12:06)
[2024-04-25] MEDS ORDERED: Atorvastatin Calcium 20 MG TAB PO SCH (21:00)
== END 2024-04-25 15:07 | disposition home or self-care (01) | DRG 440 ==
LOC: CSHERS 02:59 → CSHTELE 03:43 → OBSVTOIN 11:03
PROVIDERS: ADMIT Family Medicine; ATTEND Hospitalist
DX: K85.90 Acute pancreatitis without necrosis or infection, unspecified (principal); I10 Essential (primary) hypertension; E78.00 Pure hypercholesterolemia, unspecified; G89.29 Other chronic pain; C61 Malignant neoplasm of prostate
CPT/HCPCS: 36415; 80048; 80053; 80061; 83690; 83735; 85025; 94760; 96372; 96374; 96375; 96376; G0378; J1171; J1650; J1885; J2270; J2272; J2405; J3480; J7120

== ENCOUNTER 2024-04-29 22:25 | Emergency (ER) | payer BC, OTHER ==
[2024-04-29 23:15] LABS: #Basophils Less than 0.03 10x3/uL (0.0-0.2); #Eosinophils 0.07 10x3/uL (0.0-0.5); #Monocytes 0.32 10x3/uL (0.0-1.1); #Neutrophils 3.34 10x3/uL (1.5-8.4); %Basophils 0.2 % (0.0-2.0); %Eosinophils 1.4 % (0.0-6.0); %Lymphocytes 25.3 % (18.0-47.0); %Monocytes 6.4 % (0.0-10.0); %Neutrophils 66.5 % (40.0-75.0); Hematocrit 41.5 % (38.8-50.0); Hemoglobin 13.6 g/dL (13.5-17.5); Mean Corpuscular HGB CONC 32.8 g/dL (32.0-36.0); Mean Corpuscular Hemoglobin 27.6 pg (27.0-33.0); Mean Corpuscular Volume 84.3 fL (81.2-95.1); Mean Platelet Volume 11.1 fL (7.4-10.4); Platelet Count 241 10x3/uL (150-450); RBC Distribution Width 13.8 % (11.5-14.5); Red Blood Cell (RBC) Count 4.92 10x6/uL (4.32-5.72); White Blood Cell (WBC) Count 5.02 10x3/uL (3.5-10.5)
[2024-04-29 23:26] LABS: ALT (SGPT) 55 U/L (8-55); AST (SGOT) 27 U/L (5-34); Alkaline Phosphatase 74 U/L (40-110); Anion Gap 14 mmol/L (10-20); BUN (Urea Nitrogen) 12 mg/dL (8.4-25.7); Bilirubin, Total 0.4 mg/dL (0.2-1.2); Calc. Creatinine Clearance 0 mL/min (70-130); Calcium 9.5 mg/dL (7.8-10.44); Carbon Dioxide 25 mmol/L (22-29); Chloride 101 mmol/L (98-107); Estimated GFR 84; Globulin 3.7 g/dL (2.4-3.5); Glucose 122 mg/dL (70-105); Lipase 153 U/L (8-78); Potassium 3.7 mmol/L (3.5-5.1); Protein, Total 7.7 g/dL (6.0-8.3); Sodium 136 mmol/L (136-145)
[2024-04-30] MEDS ORDERED: Morphine 4 MG/ML VIAL ONE (04:48)
== END 2024-04-30 05:01 | disposition home or self-care (01) ==
LOC: CSHERS 22:25
DX: K85.90 Acute pancreatitis without necrosis or infection, unspecified (principal); K86.1 Other chronic pancreatitis; I10 Essential (primary) hypertension
CPT/HCPCS: 36415; 80053; 83690; 85025; 96374; J2270

== ENCOUNTER 2024-11-15 20:15 | Emergency (ER) | payer OTHER ==
[2024-11-15 20:49] LABS: Glucose, Urine (Dipstick) Normal (Negative); Leukocyte Negative (Negative); Protein, Urine (Dipstick) 15 mg/dl (Neg-Trace); Specific Gravity, Urine 1.010 (1.005-1.030)
[2024-11-15 20:55] LABS: #Basophils 0.04 10x3/uL (0.0-0.2); #Eosinophils 0.07 10x3/uL (0.0-0.5); #Monocytes 0.37 10x3/uL (0.0-1.1); #Neutrophils 3.94 10x3/uL (1.5-8.4); %Basophils 0.6 % (0.0-2.0); %Eosinophils 1.1 % (0.0-6.0); %Lymphocytes 28.4 % (18.0-47.0); %Monocytes 6.0 % (0.0-10.0); %Neutrophils 63.7 % (40.0-75.0); Hematocrit 40.4 % (38.8-50.0); Hemoglobin 14.1 g/dL (13.5-17.5); Mean Corpuscular Hemoglobin 28.7 pg (27.0-33.0); Mean Corpuscular Volume 82.3 fL (81.2-95.1); Platelet Count 248 10x3/uL (150-450); Red Blood Cell (RBC) Count 4.91 10x6/uL (4.32-5.72); White Blood Cell (WBC) Count 6.19 10x3/uL (3.5-10.5)
[2024-11-15 21:02] LABS: Bacteria/HPF Rare-Few HPF (None Seen); CAUTI Indications for Culture Dysuria,urgency,freq; Mucous/LPF Rare LPF (<2+); RBC/HPF 0-3 HPF (0-3); WBC/HPF None Seen HPF (0-3)
[2024-11-15 21:03] LABS: Urine Culture Reflex No No
[2024-11-15 21:04] LABS: ALT (SGPT) 46 U/L (Less than 45); AST (SGOT) 38 U/L (11-34); Albumin 4.5 g/dL (3.1-4.5); Alkaline Phosphatase 56 U/L (40-110); Anion Gap 17 mmol/L (10-20); BUN (Urea Nitrogen) 11 mg/dL (8.4-25.7); Bilirubin, Total 1.0 mg/dL (0.3-1.2); Calc. Creatinine Clearance 0 mL/min (70-130); Calcium 9.6 mg/dL (7.8-10.44); Carbon Dioxide 22 mmol/L (22-29); Chloride 103 mmol/L (98-107); Globulin 3.7 g/dL (2.4-3.5); Glucose 115 mg/dL (70-105); Lipase 19 U/L (8-78); Potassium 3.5 mmol/L (3.5-5.1); Sodium 138 mmol/L (136-145)
[2024-11-15] MEDS ORDERED: Dexamethasone 10 MG/ML VIAL ONE (22:05)
[2024-11-15] MEDS ORDERED: Ketorolac Tromethamine 30 MG (1 mL) VIAL ONE (22:05)
== END 2024-11-15 22:10 | disposition home or self-care (01) ==
LOC: CSHERS 20:15
DX: G89.29 Other chronic pain (principal); M54.50 Low back pain, unspecified; E11.9 Type 2 diabetes mellitus without complications; I10 Essential (primary) hypertension
CPT/HCPCS: 80053; 81001; 83690; 85025; 96374; 96375; J1100; J1885

== ENCOUNTER 2025-03-24 10:09 | Emergency (ER) | payer OTHER ==
[2025-03-24] MEDS ORDERED: Ketorolac Tromethamine 30 MG (1 mL) VIAL ONE (10:30)
[2025-03-24] MEDS ORDERED: Iopamidol 300 61% 100 ML VIAL FS ONE (10:36)
[2025-03-24 10:53] LABS: #Basophils 0.03 10x3/uL (0.0-0.2); #Eosinophils 0.08 10x3/uL (0.0-0.5); #Monocytes 0.47 10x3/uL (0.0-1.1); #Neutrophils 3.49 10x3/uL (1.5-8.4); %Basophils 0.5 % (0.0-2.0); %Eosinophils 1.4 % (0.0-6.0); %Lymphocytes 28.4 % (18.0-47.0); %Monocytes 8.2 % (0.0-10.0); %Neutrophils 61.1 % (40.0-75.0); Hematocrit 38.0 % (38.8-50.0); Hemoglobin 13.2 g/dL (13.5-17.5); Mean Corpuscular Hemoglobin 28.4 pg (27.0-33.0); Mean Corpuscular Volume 81.7 fL (81.2-95.1); Platelet Count 214 10x3/uL (150-450); Red Blood Cell (RBC) Count 4.65 10x6/uL (4.32-5.72); White Blood Cell (WBC) Count 5.71 10x3/uL (3.5-10.5)
[2025-03-24 11:17] LABS: ALT (SGPT) 38 U/L (Less than 45); AST (SGOT) 28 U/L (11-34); Albumin 4.0 g/dL (3.1-4.5); Alkaline Phosphatase 38 U/L (40-110); Anion Gap 13 mmol/L (10-20); BUN (Urea Nitrogen) 11 mg/dL (8.4-25.7); Bilirubin, Total 0.4 mg/dL (0.3-1.2); Calc. Creatinine Clearance 0 mL/min (70-130); Calcium 9.3 mg/dL (7.8-10.44); Carbon Dioxide 24 mmol/L (22-29); Chloride 104 mmol/L (98-107); Globulin 2.7 g/dL (2.4-3.5); Glucose 123 mg/dL (70-105); Lipase 16 U/L (8-78); Potassium 3.9 mmol/L (3.5-5.1); Sodium 137 mmol/L (136-145)
[2025-03-24 11:20] LABS: Troponin I Less than 0.010 ng/mL (< 0.028)
[2025-03-24] MEDS ORDERED: Lidocaine Viscous Sol 2% 15 ml UD Cup ONE (11:53)
[2025-03-24] MEDS ORDERED: Milk Of Magnesia 30 ML UDCUP ONE (11:53)
[2025-03-24] MEDS ORDERED: Famotidine/PF 20 mg/2ml Vial ONE (11:53)
[2025-03-24 12:38] LABS: Glucose, Urine (Dipstick) Normal (Negative); Leukocyte Negative (Negative); Protein, Urine (Dipstick) 15 mg/dl (Neg-Trace); Specific Gravity, Urine 1.010 (1.005-1.030)
[2025-03-24 12:42] LABS: CAUTI Indications for Culture Pelvic or flank pain; RBC/HPF None Seen HPF (0-3); WBC/HPF 0-3 HPF (0-3)
[2025-03-24 12:43] LABS: Bacteria/HPF None Seen HPF (None Seen); Urine Culture Reflex No No
== END 2025-03-24 12:57 | disposition home or self-care (01) ==
LOC: CSHERS 10:09
DX: K29.70 Gastritis, unspecified, without bleeding (principal); E11.9 Type 2 diabetes mellitus without complications
CPT/HCPCS: 74177; 80053; 81001; 83690; 84484; 85025; 93005; 96361; 96374; 96375; J1308; J1885; Q9967